=== PATIENT | female | born 1975 | race African-American/Black ===

== ENCOUNTER 2021-04-09 12:12 | Emergency (ER) | payer SELFPAY ==
[~2021-04-09] VITALS: Ht 167.6 cm; Wt 113.4 kg
[2021-04-09 15:17] VITALS: BP 118/88
[2021-04-09] MEDS ORDERED: methylPREDNISolone SOD SUCC 125 MG/2 ML VL IM ONE (17:00)
[2021-04-09] MEDS ORDERED: cefTRIAXone SOD 1,000 MG VL IM ONE (17:00)
== END 2021-04-09 17:17 | disposition home or self-care (01) ==
LOC: ER 12:12
DX: J18.1 Lobar pneumonia, unspecified organism (principal); J45.909 Unspecified asthma, uncomplicated; Z20.822 Contact with and (suspected) exposure to COVID-19
CPT/HCPCS: 36415; 71046; 87426; 96372; 99284; J0696; J2930